=== PATIENT | female | born 1995 | race Caucasian/White ===

== ENCOUNTER 2020-02-17 10:45 | Emergency (ER) | payer OTHER, SELFPAY ==
--- NOTE | ~2020-02-17 | XR_ITS ---
EXAMINATION: XR chest 2V EXAM DATE: 02/17/2020 11:29 INDICATION: Wheezing, shortness of breath. TECHNIQUE: Frontal and lateral projections of the chest obtained and reviewed. There is no prior cele dy for comparison. FINDINGS: Lungs are moderately hyperinflated. The lungs are clear. There are no pleural effusions. The cardiomediastinal silhouette is within normal limits. There is no pneumothorax suspected. The bones and soft tissues are unremarkable. IMPRESSION: 1. Hyperinflation. Reviewed, dictated and finalized at location B. IMPRESSION: 1. Hyperinflation.
--- NOTE | 2020-02-17 11:03 | ED.GENADULT ---
HPI - General Adult General Chief complaint: Upper Respiratory Infection Stated complaint: vomiting,light-headed Related Data Allergies Allergy/AdvReac Type Severity Reaction Status Date / Time No Known Allergies Allergy Verified 02/17/20 11:09 Review of Systems Constitutional: Comments: CONSTITUTIONAL: Denies fever, chills, or sweats. EYES: Denies visual changes, redness, or discharge. ENT:reports rhinorrhea, congestion, sore throat, or otalgia. CARDIOVASCULAR:Denies chest pain, palpitations, or edema. RESPIRATORY: report cough or dyspnea. GASTROINTESTINAL: report abdominal pain, nausea, vomiting, or diarrhea. GENITOURINARY: Denies dysuria or hematuria. SKIN:[Denies rash or itching. MUSCULOSKELETAL:Denies back pain, joint pain, or myalgia. NEUROLOGIC: Denies headache, numbness, or weakness. PSYCHIATRIC:Denies anxiety or depression PMFSH Comments At time as signature, I have reviewed and agree with nursing past medical, social, surgical and family history. Please see nursing chart for further information. There is no relevant family history pertinent to the presenting complaint. Exam Narrative: Exam Narrative: GENERAL:Well-appearing, well-nourished, and in no acute distress. HEAD:Normocephalic, atraumatic. EYES: PERRLA and EOMI. ENT: Nares clear, no rhinorrhea or epistaxis. Mucous membranes moist. NECK: Supple. CHEST: Clear to auscultation. No respiratory distress. HEART: Regular rate and rhythm. No murmur heard. Normal peripheral pulses. ABDOMEN: Soft, nontender, nondistended, normal active bowel sounds. EXTREMITIES: Normal range of motion. No edema. SKIN: Warm, dry, no rash. NEURO: No focal deficits. Alert and oriented x3. Course Vital Signs Vital signs: Vital Signs Temperature 98.7 F 02/17/20 11:06 Pulse Rate 116 H 02/17/20 11:06 Respiratory Rate 16 02/17/20 11:06 Blood Pressure 134/80 02/17/20 11:06 Pulse Oximetry 98 02/17/20 11:06 Temperature 98.7 F 02/17/20 11:06 Pulse Rate 116 H 02/17/20 11:06 Respiratory Rate 16 02/17/20 11:06 Blood Pressure 134/80 02/17/20 11:06 Pulse Oximetry 98 02/17/20 11:06 Medical Decision Making Vital Signs Vital Signs: Vital Signs Temperature 98.7 F 02/17/20 11:06 Pulse Rate 116 H 02/17/20 11:06 Respiratory Rate 16 02/17/20 11:06 Blood Pressure 134/80 02/17/20 11:06 Pulse Oximetry 98 02/17/20 11:06 Temperature 98.7 F 02/17/20 11:06 Pulse Rate 116 H 02/17/20 11:06 Respiratory Rate 16 02/17/20 11:06 Blood Pressure 134/80 02/17/20 11:06 Pulse Oximetry 98 02/17/20 11:06 Discharge Plan Discharge Clinical Impression: Encounter for smoking cessation counseling Upper respiratory infection Qualifiers: URI type: unspecified viral URI Qualified Code(s): J06.9 - Acute upper respiratory infection, unspecified Nausea & vomiting Qualifiers: Vomiting type: unspecified Vomiting Intractability: unspecified Qualified Code(s): R11.2 - Nausea with vomiting, unspecified Patient Disposition: Home, Self-Care Condition: Stable Instructions: Antibiotic Form Additional Instructions: If symptoms do not resolve you need to see your PCP or possibly need to be tested for COVID-19 Prescriptions: New albuterol sulfate [Ventolin HFA] 90 mcg/actuation HFA aerosol inhaler 2 puff INHALATION QID PRN (Reason: shortness of breath or wheezing) Qty: 8.5 RF: 0 ondansetron HCl [Zofran] 4 mg tablet 4 mg PO Q8H PRN (Reason: nausea and vomiting) Qty: 20 RF: 0 benzonatate [Tessalon Perles] 100 mg capsule 100 mg PO TID PRN (Reason: cough) Qty: 20 RF: 0 Follow-up/Referrals: PHYSICIAN NOT ON STAFF,NONSTAFF [Primary Care Provider] - Time of Disposition: 12:06 Discharge Date/Time: 02/17/20 12:11
[2020-02-17 11:06] VITALS: BP 134/80; PULSE 116; RESP 16; TEMP 37.1; O2SAT 98
== END 2020-02-17 12:11 | disposition home or self-care (01) ==
PROVIDERS: Emergency Provider Nurse Practitioner Family
DX: J06.9 Acute upper respiratory infection, unspecified (principal); R11.2 Nausea with vomiting, unspecified; Z71.6 Tobacco abuse counseling
CPT/HCPCS: 71046; 81003; 81025; 99203; G0463